=== PATIENT | male | born 1950 ===

== ENCOUNTER 2017-07-01 11:15 | Inpatient (IN) | payer OTHER ==
[~2017-07-01] VITALS: Ht 175.3 cm; Wt 79.4 kg
== END 2017-07-11 09:23 | disposition home or self-care (01) | DRG 331 ==
LOC: EDSTATUS 11:15 → ADM 11:15 → SURG 07-08 07:00 → O/R 07-08 07:43 → SURG 07-08 07:43 → SURH 07-09 13:50
PROVIDERS: Colon & Rectal Surgery
PROC: 0DJD8ZZ Inspection of Lower Intestinal Tract, Via Natural or Artificial Opening Endoscopic (ICD-10-PCS; 2017-07-08)
PROC: 0DTE4ZZ Resection of Large Intestine, Percutaneous Endoscopic Approach (ICD-10-PCS; principal; 2017-07-08 07:00)
DX: K57.32 Diverticulitis of large intestine without perforation or abscess without bleeding (principal)